=== PATIENT | female | born 1990 | race Two or more races ===

== ENCOUNTER 2023-10-31 07:51 | Emergency (ER) | payer MEDICAID, OTHER ==
[~2023-10-31] VITALS: Ht 154.9 cm; Wt 71.7 kg
[2023-10-31 08:20] VITALS: BP 123/80; PULSE 85; RESP 16; TEMP 98.8; O2SAT 100
[2023-10-31] MEDS ORDERED: METH-1182 PO (09:25)
[2023-10-31] MEDS ORDERED: IBUP-1456 PO (09:25)
[2023-10-31] MEDS ORDERED: ACET-1080 PO (09:36)
== END 2023-10-31 09:37 | disposition home or self-care (01) ==
LOC: ER 07:51
DX: S39.012A Strain of muscle, fascia and tendon of lower back, initial encounter (principal); V43.52XA Car driver injured in collision with other type car in traffic accident, initial encounter; Y93.89 Activity, other specified; Y92.488 Other paved roadways as the place of occurrence of the external cause; Y99.8 Other external cause status
CPT/HCPCS: 72070; 72100